=== PATIENT | female | born 1975 | race Caucasian/White ===

== ENCOUNTER → 2021-04-07 | Outpatient (CLI) | payer OTHER ==
[~2021-04-07] MED LIST: IOHEXOL 240 MG/ML 50ML VIAL. ONE; IOHEXOL 300 MG/ML 75 ML VIAL. IV ONE
--- NOTE | 2021-04-07 14:48 | RAD ---
EXAM: Abdomen and pelvis CT with intravenous contrast. HISTORY: Pain. TECHNIQUE: Computed tomographic images of the abdomen and pelvis were obtained following the administ ration of intravenous contrast. Multiplanar reformatting was performed. *One or more of the following individualized dose reduction techniques were utilized for this examina tion: 1. Automated exposure control. 2. Adjustment of the mA and/or kV according to patient size. 3. Use of iterative reconstruction technique. COMPARISON: None. FINDINGS: Evaluation of the lower thorax demonstration no infiltrate or pleural effusion. There is mi nimal periportal edema, likely due to relative bolus patient hydration. There is minimal fatty infilt ration of the liver along the falciform ligament. There is cholelithiasis. The pancreas, spleen, adre nal glands and kidneys are unremarkable. There is no appendicitis. There is no bowel obstruction. The re is no abnormal bowel wall thickening. The bladder is unremarkable. There are fallopian tube closur e devices, the left of which is displaced into the right presacral space. There is no lymphadenopathy . There is no suspicious osseous lesion. There is degenerative change at the lower lumbar levels. IMPRESSION: 1. Cholelithiasis. 2. Minimal periportal edema, likely due to relative recent bolus patient hydration. 3. Incidental displaced left fallopian tube closure device into the right presacral space. Electronically signed by: Ashley Xiao MD (04/07/2021 2:46 PM) DAVIDA
== END ==
LOC: CT 13:02
PROVIDERS: ATTEND Family Medicine Sports Medicine
DX: K80.20 Calculus of gallbladder without cholecystitis without obstruction (principal); K76.0 Fatty (change of) liver, not elsewhere classified; M47.816 Spondylosis without myelopathy or radiculopathy, lumbar region; R19.7 Diarrhea, unspecified
CPT/HCPCS: 74177; Q9967